=== PATIENT | male | born 1950 | race Two or more races ===

== ENCOUNTER → 2025-03-26 | Outpatient (CLI) | payer MEDICARE, MEDICAID, SELFPAY ==
--- NOTE | 2025-03-26 12:48 | XR_ITS ---
Examination: Knee, right , 3 views Technique: Knee AP, lateral, oblique 3 views Date and time of exam: March 26, 2025 1310 hours INDICATIONS: Knee pain 20 years. FINDINGS: Severe osteopenia Advanced tricompartment osteoarthritis No fracture Moderate knee effusion IMPRESSION: Advanced tricompartment osteoarthritis
== END | disposition home or self-care (01) ==
LOC: SDIM 12:21
PROVIDERS: PCP Family Medicine; Referring Provider Orthopaedic Surgery; Visit Provider Orthopaedic Surgery
DX: M17.11 Unilateral primary osteoarthritis, right knee (principal)
CPT/HCPCS: 73562

== ENCOUNTER 2025-04-09 14:36 | Observation (INO) | payer MEDICARE, MEDICAID, SELFPAY ==
--- NOTE | 2025-04-08 11:36 | EKG_ITS ---
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
[2025-04-08 11:42] VITALS: BMI 26.6
[2025-04-08 13:24] LABS: Alanine Aminotransferase 12 U/L (10-49); Albumin, Serum 4.6 gm/dL (3.4-4.8); Albumin/Globulin Ratio 1.9 (1.2-2.2); Alkaline Phosphatase 65 U/L (46-116); Anion Gap 11 (7-16); Aspartate Amino Transferase 21 U/L (0-34); BUN/Creatinine Ratio 12 Ratio (12-20); Bilirubin,Total 0.8 mg/dL (0.3-1.2); Blood Urea Nitrogen 13 mg/dL (9-23); Calcium 9.4 mg/dL (8.3-10.6); Calcium (Corrected) 9.4 mg/dL (8.5-10.1); Carbon Dioxide 27.3 mMol/L (20.0-31.0); Chloride 104 mMol/L (98-107); Creatinine (Component) 1.1 mg/dL (0.6-1.3); Estimated Creatinine Clearance 50.5 mL/min (>60); Globulin 2.4 gm/dL (2.3-3.5); Glucose 98 mg/dL (74-106); Osmolality,Calculated 283 (275-295); Potassium 3.9 mMol/L (3.4-5.1); Sodium 142 mMol/L (136-145); Total Protein 7.0 gm/dL (5.7-8.2); eGFR > 60 See Note
[2025-04-08 13:38] LABS: INR 1.1 (0.9-1.3); Partial Thromboplastin Time 25.7 Seconds (22.0-36.0); Prothrombin Time 11.1 Seconds (9.0-12.2)
[2025-04-08 14:59] LABS: Basophils # (Auto) 0.1 Thou/mm3 (0.0-0.2); Basophils % (Auto) 1 % (0-2.5); Eosinophils # (Auto) 0.0 Thou/mm3 (0.0-0.5); Eosinophils % (Auto) 0 % (0-10); Hematocrit 39.2 % (41.0-53.0); Hemoglobin 13.3 g/dL (13.5-16.0); Immature Granulocytes Auto 0.01 Thou/mm3 (0.00-0.00); Lymphocytes # (Auto) 1.2 Thou/mm3 (1.0-4.8); Lymphocytes % (Auto) 21 % (10-50); Mean Corpuscular HGB Conc 33.9 g/dl (31.0-37.0); Mean Corpuscular Hemoglobin 31.4 pg (25.0-35.0); Mean Corpuscular Volume 93 fL (80-100); Monocytes # (Auto) 0.2 Thou/mm3 (0.0-0.8); Monocytes % (Auto) 4 % (0-12); Neutrophils # (Auto) 4.3 Thou/mm3 (1.8-7.7); Neutrophils % (Auto) 74 % (37-80); Nucleated Red Blood Cell # 0.00 Thou/mm3 (0.00-0.00); Nucleated Red Blood Cell % 0 /100 WBC (0); Platelet Count 201 Thou/mm3 (140-440); RDW Standard Deviation 43.9 fL (35.1-43.9); Red Blood Count 4.23 Miln/mm3 (4.50-5.90); White Blood Count 5.9 Thou/mm3 (3.8-10.6)
--- NOTE | 2025-04-08 15:40 | SUR.PREOP ---
Pt notified to come in tomorrow at 0830
--- NOTE | 2025-04-08 15:58 | SUR.PREOP ---
Pt is bringing cardiac clearence with him tomorrow
[2025-04-09] VITALS (9 sets, daily range): BP systolic 134–177; BP diastolic 70–93; PULSE 59–73; RESP 12–19; TEMP 36.2–37.4; O2SAT 94–99; BMI 26.6
[2025-04-09] MEDS: RINGERS LACTATED 1000 ML 1,000 ML 20 ML IV (09:16)
--- NOTE | 2025-04-09 09:49 | SUR.PREOP ---
Patient expressed gratitude for prayer before their procedure.
--- NOTE | 2025-04-09 13:24 | ESOP_ITS ---
Date of Procedure 04/09/25 Pre Op Diagnosis Severe DJD right knee joint Post Op Diagnosis Same Procedure Right total knee replacement MR mario implant. Femur size 9 narrow Tibial baseplate size E Polyethylene size 11 mm. Medial stabilizer. Patella size 29 mm Findings Refer dictation Procedure Description The patient was given a General anesthesia. Once satisfactory anesthesia was achieved a tourniquet was placed on right upper thigh. Intravenous antibiotics was given at the time of anesthesia. The patient was thoroughly prepped and draped. After using Esmarch the tourniquet pressure was raised to 350 mmHg. A skin incision was made 2 inches proximal to the upper pole of patella going as far down as up to the medial aspect of the tibial tuberosity. The skin was raised as a flap on the site. The bleeding vessels were electrocoagulated as and when encountered. The quadriceps tendon, medial border of the patella and the patellar tendon along the medial aspect of the tibial tuberosity was incised and reflected. The patellar tendon was reflected as much as needed to zacarias the patella. The soft tissue from the upper medial border of the tibia was reflected to correct her genu varum deformity. The knee joint was flexed. The anterior cruciate ligament, medial and lateral meniscus were excised. Next para drill hole was made to the inferior surface of the femur. Following that a swab was placed. A 4?? of abduction was already put into it. Following that a cutting block for the inferior cut of the femur was placed and nicely secured with the pins. The swat was removed. The inferior cut of the femur was made and after that the cutting block was removed. Following that a sizer was placed. A decision was made to use size [9] femur implant. 2 drill holes each in 3?? of external rotation were made. The sizer was removed. Size [4] cutting block was placed. Following that anterior, posterior, anterior chamfer and posterior chamfer cuts were made. The cutting block was removed. The knee joint was extended and a 10 mm trial plastic was removed and the intended level of the tibial cut was marked. The knee joint was flexed. With the help of double-pronged the tibia was displaced anteriorly. An extramedullary jig for the cutting block placement of the tibia was placed. The mechanical axis of the zig was parallel to the mechanical axis of the tibia. Following that the tibial cutting block was placed at the desired level and was secured nicely with the help of pins. Following that the tibial cut was made. In this case was posterior cruciate ligament was saved. The cutting block was removed. The spacer was placed and a decision was made to use size [11] polyethylene. The sizing of the tibial baseplate was done and the decision was made to use size [C] tibial baseplate. Following that size [9] trial femur implant was placed in lateralized position and size [E] tibial tibial baseplate along with size [11] medial stabilizer plastic was placed in knee joint was flexed and extended quite a few times and tibial baseplate was allowed to sit wherever it wanted to. The markings were made for the tibial baseplate. 2 drill holes were made for the inferior surface of the femur trial implant. The trial implant was removed and tibial baseplate was placed again with the help of pins. The collar was placed and superior hole was drilled. Following that a fin cut was made. The patella was reamed with [29] mm diameter reamer. [12] mm thickness was left. A collar was placed and 3 drill holes were made. All the trial implant was placed and patellar tracking was checked and found to be good. Lateral release was done at this point. The wound was irrigated with antibiotic solution every 4-5 minutes. Now the power lavage antibiotic solution was used. The knee joint was flexed. The bone were made dry. The cement was mixed. With the help of cement the tibial baseplate was mounted. The excess cement was removed. The femur implant was placed and trial plastic was placed and knee joint was extended. Patella was also mounted with the help of cementing. Excess cement was removed. Osteophytes from the patella was removed at this time. Once the cement was set the tourniquet pressure was released. The bleeding vessels were electrocoagulated. The trial plastic was removed and 11 mm medial stabilizer ultra high molecular weight polyethylene was placed. Closure The quadricep tendon, the medial border of the patella and patellar tendon was closed with the help of 1 strata fix in continuous fashion. The fat layer was closed with the help of 2 oh strata fix in continuous fashion. The skin was closed with 3 Monocryl in continuous fashion in a subcuticular way. To cleaning the wound Prineo tape was applied. The wound was covered with Curlex fluffs and ABD pad. Wrapped with rolled Patient tolerated procedure very well. Estimated blood loss [50] mL. Prognosis in this case is good. This was taken to the recovery room in good condition. Anesthesia GETA and other Pathology / specimen None Estimated Blood Loss 50 Surgeon Chai Parker MD Surgical Staff Operation Date: 04/09/25 10:45 Case Staff Anesthesiologist: Espinoza Oh RNcompliance and control analyst: Ellen Mcgee
--- NOTE | 2025-04-09 13:24 | XR_ITS ---
Examination: Knee, right , 3 views Technique: Knee AP, lateral, oblique 3 views Date and time of exam: April 19, 2025 1351 hours INDICATIONS: Postop knee arthroplasty today. FINDINGS: Total right knee arthroplasty. Satisfactory alignment No fracture IMPRESSION: Total right knee arthroplasty with satisfactory alignment
--- NOTE | 2025-04-09 13:43 | SUR.PHASEI ---
1343: Pt. AAOx4, vitals stable, breathing unlabored, no complaint of pain or nausea, dressing to right knee CDI, no active bleed noted, pt. able to move bilateral legs, cap refill to bilateral feet less than 3 seconds, bilateral dorsalis pedis pulses strong and regular, report received from MD Oh and Nathalie CASTAÑEDA.
[2025-04-09] MEDS: SODIUM CHLORIDE 0.9% 1000 ML 1,000 ML 60 ML IV (14:15)
--- NOTE | 2025-04-09 14:35 | SUR.PHASEII ---
1435: Pt. AAOx4,vitals stable, breathing unlabored, no complaint of pain or nausea, dressing to right knee CDI, no active bleed noted, pt. able to move bilateral legs, cap refill to bilateral feet less than 3 seconds, bilateral dorsalis pedis pulses strong and regular, report given to Kelsie CASTAÑEDA prior to transfer to room 375. Pt. transferred with all personal belongings. Family made aware of transfer to room.
[2025-04-09] MEDS: ONDANSETRON INJ 2 MG/ML INJ 2 ML 4 MG IV ×2 (15:54→22:17)
--- NOTE | 2025-04-09 16:26 | ESHP_ITS ---
RE: AUSTIN FRANCOIS : 1950 DATE OF ADMISSION: 04/09/2025 The patient came to my office on 04/08/2025 for detailed preop history and physical examination. HISTORY OF PRESENTING COMPLAINT: The patient presented to me with history of pain in the right knee joint. Pain is going on for the last few years, but right knee becoming extremely painful. It is affecting his quality of life and activities of daily living. Intensity of pain is rated to be 8-9/10. Unable to walk more than 1 or 2 blocks. The patient has had injection in the right knee joint, but it did not help him at all. The patient believes he cannot do physical therapy as it is too painful. X-ray confirms severe osteoarthritis changes of the right knee joint. PAST MEDICAL HISTORY: The patient has a history of high blood pressure, cancer, and swollen ankles. No history of diabetes mellitus, asthma, seizure, chest pain, myocardial infarction, bleeding disorder. PAST SURGICAL HISTORY: Nil. DRUG HISTORY: The patient is on; 1. Atorvastatin. 2. Hydrochlorothiazide. 3. Lisinopril. 4. Flomax. ALLERGIES: NONE. FAMILY HISTORY AND SOCIAL HISTORY: The patient denies smoking, admits to social drinking and is not working. PHYSICAL EXAMINATION: GENERAL: Normal built person. VITAL SIGNS: Pulse is 68 per minute. Blood pressure is 138/76. NECK: Soft, supple. No masses felt. Trachea is centrally placed. CARDIOVASCULAR SYSTEM: First and second heart sounds are normal. No murmur heard. RESPIRATORY SYSTEM: Bilateral vesicular breath sounds. CHEST: Clear. ABDOMEN: Soft. No masses. Bowel sounds present. EXTREMITIES: Right knee examination revealed 1+ swelling and 2+ tenderness. 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 Active range of motion 0-110 degrees of flexion. Crepitus is present. The patient walks with a limp. Neurovascularly, it is intact. LABORATORY DATA: X-ray of the right knee joint revealed severe osteoarthritic changes of the right knee joint with significantly reduced medial and patellofemoral compartment. Osteophytes were also present. ASSESSMENT AND PLAN: Since the patient was symptomatic, therefore, right total knee replacement was discussed and advised. Risks with anesthesia were explained and that includes, but not limited to reaction to anesthetic agents, cardiac arrest, and rarely it might be fatal. Risks with operation includes infection and if that happens, the patient may need further surgical procedure. There is risk of a stress fracture proximal and/or distal to the implant. There is risk to possible damage to nerve and/or vessels and if that happens, that has to be taken care of and may need further surgical procedure. Sometimes there is loosening of the implant. No guarantee is given regarding outcome of the procedure and/or relief of symptoms and/or functional outcome and the patient is fully aware of that. Sometimes rare complication happens and if that happens that has to be taken care of. The patient was also explained the risks with blood transfusion. At some time, the patient may need blood transfusion. The patient discussed at length about blood transfusion and stated that the patient would accept blood when it is absolutely necessary. The patient is also cleared for surgical procedure. Accordingly surgery is booked for 04/2025. Appropriate lab work is done. DT: 14:54:57 TT: 16:25:00 Ref: [id number] - TID: [id number]
[2025-04-09] MEDS: ceFAZolin/D5W 1 GM IVPB 1 GM/50 ML BAG IV (20:20)
--- NOTE | 2025-04-09 20:34 | PD.ANESPROG ---
Documentation for date of: 04/09/25 ANESTHESIA NOTE: Patient had GETA and R femoral block for R TKA earlier today. He did well intra-op and in PACU. Espinoza Oh MD Anesthesia Progress Note Progress Note Most recent Vital Signs: Last Vital Signs Temp 98.1 F 04/09/25 20:00 Pulse 61 04/09/25 20:00 Resp 17 04/09/25 20:00 BP 145/71 H 04/09/25 20:00 Pulse Ox 95 04/09/25 20:00 O2 Del Method Room Air 04/09/25 20:00 O2 Flow Rate 2 04/09/25 13:58
[2025-04-10] VITALS: BP 143/75; PULSE 63; RESP 18; TEMP 36.4; O2SAT 96
[2025-04-10] MEDS: ceFAZolin/D5W 1 GM IVPB 1 GM/50 ML BAG IV (03:34)
[2025-04-10 04:00] VITALS: BP 128/63; PULSE 61; RESP 18; TEMP 36.9; O2SAT 95
[2025-04-10 05:59] LABS: Basophils # (Auto) 0.0 Thou/mm3 (0.0-0.2); Basophils % (Auto) 0 % (0-2.5); Eosinophils # (Auto) 0.0 Thou/mm3 (0.0-0.5); Eosinophils % (Auto) 0 % (0-10); Hematocrit 36.0 % (41.0-53.0); Hemoglobin 12.3 g/dL (13.5-16.0); Immature Granulocytes Auto 0.02 Thou/mm3 (0.00-0.00); Lymphocytes # (Auto) 0.5 Thou/mm3 (1.0-4.8); Lymphocytes % (Auto) 5 % (10-50); Mean Corpuscular HGB Conc 34.2 g/dl (31.0-37.0); Mean Corpuscular Hemoglobin 31.1 pg (25.0-35.0); Mean Corpuscular Volume 91 fL (80-100); Monocytes # (Auto) 0.8 Thou/mm3 (0.0-0.8); Monocytes % (Auto) 7 % (0-12); Neutrophils # (Auto) 9.4 Thou/mm3 (1.8-7.7); Neutrophils % (Auto) 88 % (37-80); Nucleated Red Blood Cell # 0.00 Thou/mm3 (0.00-0.00); Nucleated Red Blood Cell % 0 /100 WBC (0); Platelet Count 199 Thou/mm3 (140-440); RDW Standard Deviation 42.1 fL (35.1-43.9); Red Blood Count 3.95 Miln/mm3 (4.50-5.90); White Blood Count 10.7 Thou/mm3 (3.8-10.6)
[2025-04-10 06:50] VITALS: PULSE 59; RESP 20; RESP 98
[2025-04-10 07:40] VITALS: BP 126/70; PULSE 62; RESP 18; TEMP 36.2; O2SAT 97
[2025-04-10 12:00] VITALS: BP 120/65; PULSE 55; RESP 18; TEMP 36.2; O2SAT 97
[2025-04-10] MEDS: MORPHINE SULF INJ 10 MG/ML VIAL 4 MG IVP (13:11)
[2025-04-10 15:39] VITALS: BP 122/68; PULSE 58; RESP 18; TEMP 36.2; O2SAT 97
== END 2025-04-10 15:05 | disposition home or self-care (01) ==
LOC: S3SX 14:45
PROVIDERS: Anesthesiology; Admitting Provider Orthopaedic Surgery; PCP Family Medicine; Referring Provider Orthopaedic Surgery; Visit Provider Orthopaedic Surgery
PROC: (CPT 27447; principal; 2025-04-09 10:30)
DX: M17.11 Unilateral primary osteoarthritis, right knee (principal); R00.1 Bradycardia, unspecified
CPT/HCPCS: 27447; 36415; 73562; 80053; 85025; 85610; 85730; 86850; 86900; 86901; 86923; 87081; 93005; 96374; 96375; 96376; 97163; A4217; C1713; C1776; G0378; J0131; J0689; J0690; J1100; J1171; J2250; J2270; J2371; J2405; J2704; J2795; J3010; J3490; J7030; J7120; J1596; J1805